=== PATIENT | male | born 1995 | race Caucasian/White ===

== ENCOUNTER 2018-04-19 09:46 | Day surgery (SDC) | payer BC ==
[~2018-04-19 09:46] MED LIST: EPINEPHrine 1 MG/ML 30 ML MDV SCH; EPINEPHrine 1 MG/ML SDV ONE; Lidocaine 1%/Sod Bicarbonate in NS 8.4% 1 ML Syringe IDERM PRN; Ropivacaine 0.5% 5 MG/ML 30 ML SDV ONE; Sodium Chloride 0.9% 10 ML Syringe FLUSH PRN
[2018-04-19] MEDS: Lactated Ringers 1,000 ML IV SCH ×2 (10:40→12:37)
--- NOTE | 2018-04-19 10:59 | PCM.PREANE ---
Preanesthetic Assessment - Procedure Proposed Procedure: LEFT SHOULDER ARTHROSCOPY - Anesthesia/Transfusion/Family Hx Anesthesia History: Prior Anesthesia Without Reaction Family History of Anesthesia Reaction: No Transfusion History: No Prior Transfusion(s) - Review of Systems General: No Symptoms Pulmonary: No Symptoms Cardiovascular: No Symptoms Gastrointestinal: No Symptoms Neurological: No Symptoms Other: Reports: None - Physical Assessment NPO Status Date: 04/18/18 NPO Status Time: 22:00 Pulse: 77 O2 Sat by Pulse Oximetry: 98 Respiratory Rate: 16 Blood Pressure: 121/78 Temperature: 98.1 F Height: 5 ft 10 in Weight: 63 kg ASA Class: 2 Mental Status: Alert & Oriented x3 Airway Class: Mallampati = 1 Dentition: Reports: Normal Dentition Thyro-Mental Finger Breadths: 3 Mouth Opening Finger Breadths: 3 ROM/Head Extension: Full Lungs: Clear to Auscultation, Normal Respiratory Effort Cardiovascular: Regular Rate, Regular Rhythm - Lab Values: Laboratory Last Values WBC 5.52 K/mm3 (4.23-9.07) 04/11/18 12:22 RBC 5.14 M/mm3 (4.63-6.08) 04/11/18 12:22 Hgb 17.0 gm/L (13.7-17.5) 04/11/18 12:22 Hct 46.4 % (40.1-51.0) 04/11/18 12:22 MCV 90.3 fl (79.0-92.2) 04/11/18 12:22 MCH 33.1 pg (25.7-32.2) H 04/11/18 12:22 MCHC 36.6 g/dl (32.2-35.5) H 04/11/18 12:22 RDW Std Deviation 39.7 fL (35.1-43.9) 04/11/18 12:22 Plt Count 256 K/mm3 (163-337) 04/11/18 12:22 MPV 10.3 fl (9.4-12.3) 04/11/18 12:22 Neut % (Auto) 62.9 % (34.0-67.9) 04/11/18 12: Lymph % (Auto) 22.3 % (21.8-53.1) 04/11/18 12:22 [place] % (Auto) 12.1 % (5.3-12.2) 04/11/18 12:22 Eos % (Auto) 1.8 (0.8-7.0) 04/11/18 12:22 Baso % (Auto) 0.5 % (0.1-1.2) 04/11/18 12:22 Neut # (Auto) 3.47 K/mm3 (1.78-5.38) 04/11/18 12:22 Lymph # (Auto) 1.23 K/mm3 (1.32-3.57) L 04/11/18 12:22 [place] # (Auto) 0.67 K/mm3 (0.30-0.82) 04/11/18 12:22 Eos # (Auto) 0.10 K/mm3 (0.04-0.54) 04/11/18 12:22 Baso # (Auto) 0.03 K/mm3 (0.01-0.08) 04/11/18 12:22 Manual Slide Review Normal smear 04/11/18 12:22 Sodium 140 mEq/L (136-145) 04/11/18 12:21 Potassium 3.7 mEq/L (3.5-5.1) 04/11/18 12:21 Chloride 103 mEq/L (98-107) 04/11/18 12:21 Carbon Dioxide 27 mEq/L (21-32) 04/11/18 12:21 Anion Gap 13.7 (5-15) 04/11/18 12:21 BUN 12 mg/dL (7-18) 04/11/18 12:21 Creatinine 0.9 mg/dL (0.7-1.3) 04/11/18 12:21 Est Cr Clr Drug Dosing TNP 04/11/18 12:21 Estimated GFR (MDRD) > 60 mL/min (>60) 04/11/18 12:21 BUN/Creatinine Ratio 13.3 (14-18) L 04/11/18 12:21 Glucose 86 mg/dL (74-106) 04/11/18 12:21 Calcium 9.0 mg/dL (8.5-10.1) 04/11/18 12:21 MRSA (PCR) Negative 04/11/18 12:20 - Allergies Allergies/Adverse Reactions: Allergies Allergy/AdvReac Type Severity Reaction Status Date / Time No Known Allergies Allergy Verified 04/18/18 13:36 - Blood Blood Available: No - Acknowledgements Anesthesia Type Planned: General Anesthesia Pt an Appropriate Candidate for the Planned Anesthesia: Yes Alternatives and Risks of Anesthesia Discussed w Pt/Guardian: Yes Pt/Guardian Understands and Agrees with Anesthesia Plan: Yes PreAnesthesia Questionnaire - Past Health History Medical/Surgical History: Denies Medical/Surgical History Cardiovascular History: Reports: None Respiratory History: Reports: None Gastrointestinal History: Reports: None Musculoskeletal History: Reports: None Other Musculoskeletal History: shoulder dislocation Psychiatric History: Reports: None Endocrine/Metabolic History: Reports: None Oncologic (Cancer) History: Reports: None - Past Surgical History Musculoskeletal Surgical History: Reports: Other (See Below) Other Musculoskeletal Surgeries/Procedures:: right ankle ORIF with hardware - SUBSTANCE USE Smoking Status *Q: Current Every Day Smoker Tobacco Use Within Last Twelve Months: Snuff/Dip Second Hand Smoke Exposure: No Days Per Week of Alcohol Use: 3 (beer) Number of Drinks Per Day: 10 Total Drinks Per Week: 30 Recreational Drug Use History: No - HOME MEDS Home Medications: Home Meds Acetaminophen/HYDROcodone [[place] 325-5 MG] 1 - 2 tab PO Q6H PRN #30 tablet 04/19 [Rx] - CURRENT (IN HOUSE) MEDS Current Meds: Current Medications Epinephrine HCl (Adrenalin) 3 mg .XX ASDIRECTED RALPH Stop: 04/19/18 12:00 Lactated Ringer's (Ringers, Lactated) 1,000 mls @ 125 mls/hr IV ASDIRECTED RALPH Stop: 04/19/18 23:00 Lidocaine/Sodium Bicarbonate (Buffered Lidocaine 1% In Ns 8.4%) 0.25 ml IDERM ONETIME PRN PRN Reason: Prior to IV Start Stop: 04/19/18 18:00 Sodium Chloride (Saline Flush) 10 ml FLUSH ASDIRECTED PRN PRN Reason: Keep Vein Open Stop: 04/19/18 18:00 Discontinued Medications Epinephrine HCl (Adrenalin) Confirm Administered Dose 1 mg .ROUTE .STK-MED ONE Stop: 04/19/18 07:25 Ropivacaine (Naropin 0.5%) Confirm Administered Dose 30 ml .ROUTE .STK-MED ONE Stop: 04/19/18 07:25
[2018-04-19] MEDS ORDERED: Rocuronium 50 MG/5 ML Vial ONE (11:04)
[2018-04-19] MEDS ORDERED: Lidocaine 1% 4 ML ONE (11:04)
[2018-04-19] MEDS ORDERED: Ondansetron 4 MG/2 ML SDV ONE (11:04)
[2018-04-19] MEDS ORDERED: Midazolam 1 MG/ML 2 ML SDV ONE (11:04)
[2018-04-19] MEDS ORDERED: Propofol 200 MG/20 ML SDV ONE (11:04)
[2018-04-19] MEDS ORDERED: fentaNYL 250 MCG/5 ML SDV ONE (11:04)
[2018-04-19] MEDS ORDERED: Lidocaine 1% 2 ML ONE (11:05)
[2018-04-19] MEDS ORDERED: ceFAZolin 1 GM Vial ONE (11:05)
[2018-04-19] MEDS ORDERED: Bupivacaine 0.5% 30 ML SDV ONE (11:07)
--- NOTE | 2018-04-19 11:57 | PCM.SN ---
- Free Text/Narrative Note: 04/19/18 [id number] Time out performed. Requested to place left interscale block with ultrasound guidance and nerve stimulator for post op pain control per Dr. Walsh and patient. Preop diagnosis left shoulder instability Procedure is left shoulder arthrosocpy with blanket repair. Block assisted by Berkley [place] Informed consent obtained. Monitors and O2 placed at 2 l per n/c. Versed 2 mg and Fentanyl 100mcg given IV total. Patient awake and talking during procedure. Left neck and clavicle area prepped with chlorprep. Sterile gloves, hat and mask worn. US probe with sterile sleeve placed midclavicular with ID of brachial plexus and subclavian artery. Brachial plexus followed cephalad to level of cricoid. Lidocaine 1% local anesthetic injected prior to block placement. 22 g 2 inch stimplex needle advanced with US guidance to brachial plexus. Positive forearm response at ..4mA with nerve stimulator. Ceased with saline injection.Ropivacaine 0.5% with epi 1:200,000 injected in increments of 5 ml with negative aspiration before each injection to a total of 30 ml. Good spread of local anesthetic seen on US. Patient tolerated procedure well. Vitals stable with no complaints. See nurses notes flow sheet. Alex GOODWIN
[2018-04-19] MEDS ORDERED: Bupivacaine 0.25% 10 ML SDV ONE (12:08)
[2018-04-19] MEDS ORDERED: Ondansetron 4 MG/2 ML SDV IVPUSH PRN (12:49)
[2018-04-19] MEDS ORDERED: fentaNYL 100 MCG/2 ML SDV IVPUSH PRN (12:49)
[2018-04-19] MEDS ORDERED: HYDROmorphone 0.5 MG/0.5 ML Syringe IVPUSH PRN (12:49)
[2018-04-19] MEDS ORDERED: Meperidine 50 MG/ML Vial IVPUSH PRN (12:49)
[2018-04-19] MEDS ORDERED: Ketorolac 30 MG/ML SDV ONE (13:52)
[2018-04-19] MEDS ORDERED: Neostigmine Methylsulfate 1 MG/ML 5 ML Syringe ONE (13:55)
--- NOTE | 2018-04-19 14:26 | PCM.POSTAN ---
POST ANESTHESIA ASSESSMENT - MENTAL STATUS Mental Status: Alert, Oriented - VITAL SIGNS Pulse Rate: 72 SaO2: 98 Resp Rate: 13 Blood Pressure: 136/71 Temperature: 98.3 F - RESPIRATORY Respiratory Status: Respiratory Rate WNL, Airway Patent, O2 Saturation Stable, Supplemental Oxygen - CARDIOVASCULAR CV Status: Pulse Rate WNL, Blood Pressure Stable - GASTROINTESTINAL GI Status: No Symptoms - PAIN Pain Score: 0 - POST OP HYDRATION Hydration Status: Adequate & Stable
--- NOTE | 2018-04-19 14:59 | PCM48HPAN ---
Post Anesthesia Note - EVALUATION WITHIN 48HRS OF ANESTHETIC Vital Signs in Normal Range: Yes Patient Participated in Evaluation: Yes Respiratory Function Stable: Yes Airway Patent: Yes Cardiovascular Function Stable: Yes Hydration Status Stable: Yes Pain Control Satisfactory: Yes Nausea and Vomiting Control Satisfactory: Yes Mental Status Recovered: Yes (AWAKE ALERT NO PAIN) Resp Rate: 14
[2018-04-19 16:09] VITALS: BP 115/75
--- NOTE | 2018-04-26 09:56 | PCM.OPNOTE ---
- General Post-Op/Procedure Note Date of Surgery/Procedure: 04/19/18 Operative Procedure(s): left shoulder anterior bankart repair Pre Op Diagnosis: left shoulder anterior instability Post-Op Diagnosis: Same Anesthesia Technique: General ET Tube, Regional Block Primary Surgeon: Archie Walsh Anesthesia Provider: Aroldo Albright Gear Tooth Lapping Machine Operator: Allyn Frank EBL in mLs: 5 Complications: None Condition: Good
--- NOTE | 2018-04-26 11:21 | OR ---
DATE OF OPERATION: 04/19/2018 SURGEON: Archie Walsh MD PROCEDURE: Left shoulder video arthroscopy with anterior Bankart repair. PREOPERATIVE DIAGNOSIS: Left shoulder anterior instability. POSTOPERATIVE DIAGNOSIS: Left shoulder anterior instability. ANESTHESIA: General endotracheal intubation with regional interscalene block. ANESTHESIA PROVIDER: Aroldo Albright CRNA. HEADWAITRESS: Allyn Frank PA-C. ESTIMATED BLOOD LOSS: Less than 5 mL. COMPLICATIONS: None. CONDITION: Stable. DESCRIPTION OF PROCEDURE: Patient was identified in the preop holding area. Proper site was marked and identified by the surgeon. The patient was taken back to the operating theater. After adequate anesthesia, the patient was placed in the lazy right lateral decubitus position. All bony prominences well padded. The patient was secured to the table. At this time, the left upper extremity was sterilely prepped and draped in the usual sterile fashion. OR time-out was performed. The patient received 2 g IV Ancef. A 10 pounds of traction was applied to the left upper extremity. A standard posterior incision was made, and the scope trocar was introduced into the glenohumeral joint. At this time, the patient was noted to have a very shallow Hill-Sachs lesion, but it was not engaging. The patient was noted to have significant erythema noted throughout the anterior portion of the shoulder joint. The biceps tendon was intact. Subscapularis tendon was intact. The undersurface of the rotator cuff was intact. Otherwise, no loose or foreign bodies. The patient was noted to have a small rim fracture noted that looked to be significantly old near where the labral tear was as well or it was severely calcified anterior capsule as well as the labrum. At this time, this was freed up from the anterior portion of the glenoid using a [place] elevator and a rasp to rasp the anterior portion of the glenoid. Starting at roughly the 9 o'clock position, I was able to free enough labrum up to get a 2.3 mm Arthrex PushLock labral anchor in at that position after grabbing hold of a significant amount of anterior capsule as well as part of the capsule, either bone or calcified anterior capsule. This was then placed, and it was found to have a good buffer in the previously noted grade 4 chondromalacia that was noted at a small area of roughly 8 mm x 5 mm in the anterior portion of the glenoid. Next, one just superior to this was again placed, and then, another one superior to this just anterior to the biceps anchor. I did have good anterior capsular repair. At this time, it was noted to have good bounce back with no signs of instability anteriorly. At this time, excess saline was drained from the shoulder. A 3-0 nylon simple suture was used for closure of the skin. The patient was sent to PACU in stable condition in a pillow sling and a sterile soft dressing. OPERATION PERFORMED: RICARDO /[id number]
== END 2018-04-19 15:50 | disposition home or self-care (01) ==
LOC: JD.SDS 09:46
PROVIDERS: ATTEND Orthopaedic Surgery
DX: M25.312 Other instability, left shoulder (principal); S42.292A Other displaced fracture of upper end of left humerus, initial encounter for closed fracture; M94.212 Chondromalacia, left shoulder; F17.290 Nicotine dependence, other tobacco product, uncomplicated
CPT/HCPCS: 29806; 36415; 80048; 85025; 87641; C1713; J0171; J0690; J1885; J2250; J2405; J2704; J2710; J2795; J3010; J3490; J7120; 01630; 64415; J2001